=== PATIENT | male | born 1985 | race Caucasian/White ===

== ENCOUNTER 2019-04-13 17:56 | Emergency (ER) | payer OTHER ==
--- OUTSIDE RECORDS SUMMARY | 2019-04-13 18:25 | XMS REPORT | Continuity of Care Document ---
:1985 External Reference #:[id number] Author Name Patrice Bishop MD (transmitted by agent of provider Blaine Stahl) Address [address] [place] [id number] Care Team Providers Name Role Phone Debbie Andrews F.N.P. - Nurse Care Team Information Secretary Book Keeper [phone] Practitioner Problems Description No Information Available Social History Type Date Description Comments Sex Unknown ETOH Use Occasionally consumes alcohol Tobacco Use Start: Unknown End: Patient is a former smoker Recreational Drug Use Denies Drug Use Exercise Type/Frequency Does not exercise Allergies, Adverse Reactions, Alerts Active Allergies Reaction Severity Comments Date Bee Sting Severe 04/02/2019 Mushrooms 04/02/2019 Codeine Phosphate 04/02/2019 Narcotics 04/02/2019 Medications Active Medications SIG Qnty Indications Ordering Provider Date Esomeprazole Magnesium 1 cap by mouth Unknown 20mg every day Capsules DR Amoxicillin/Clavulanate 1 tab by mouth Unknown Potassium twice daily 875-125mg Tablets Ibuprofen one tablet by Unknown 600mg Tablets mouth q 6 as needed pain Tylenol 500 MG 2 tabs by mouth Unknown twice daily Immunizations Description No Information Available Vital Signs Date Vital Result Comment 04/02/2019 2:08pm Height 68 inches 5'8" Weight 178.00 lb Heart Rate 70 /min BP Systolic Sitting 120 mmHg BP Diastolic Sitting 98 mmHg Respiratory Rate 16 /min Body Temperature 99.1 F Pain Level 7 O2 % BldC Oximetry 97 % BMI (Body Mass Index) 27.1 kg/m2 Results Description No Information Available Procedures Description No Information Available Medical Devices Description No Information Available Encounters Type Date Location Provider Dx Diagnosis Office Visit 04/02/2019 Orthopedic Patrice Bishop, S80.872A Other superficial 1:[facility] [place] bite, left lower [place] leg, initial encounter S93.432A Sprain of tibiofibular ligament of left ankle, init encntr Assessments Date Code Description Provider 04/02/2019 S80.872A Other superficial bite, left lower leg, Patrice Bishop MD initial encounter 04/02/2019 S93.432A Sprain of tibiofibular ligament of left ankle, Patrice Bishop MD initial encounter Plan of Treatment Future Appointment(s):04/19/2019 8:45 am - Patrice Bishop MD at [facility]33/23/2019 - Patrice Bishop, [id number] Other superficial bite, left lower leg, initial encounterFollow up:Follow up: 1-2 weekS93.432A Sprain of tibiofibular ligament of left ankle, initial encounter Functional Status Description No Information Available Mental Status Description No Information Available Referrals Description No Information Available
[2019-04-13] MEDS ORDERED: Piperacillin/Tazobac ADVAN(*) 3.375 GM in NS 0.9% 100 ML* 100 ML IVPB ONE (19:45)
[2019-04-13 20:15] LABS: ABS Eosinophils 0.1 10^3/ul (0-0.6); ABS Monocytes 0.8 10^3/ul (0-0.8); ABS Neutrophils 5.9 10^3/ul (1.5-7.7); Eosinophil % 1.4 %; Hematocrit 43 % (42-52); Hemoglobin 14.6 g/dL (14.0-18.0); Lymphocyte % 30.1 %; Mean Corpuscular HGB Conc 34 g/dL (31-36); Mean Corpuscular Hemoglobin 31 pg (27-31); Mean Corpuscular Volume 91 fL (80-94); Mean Platelet Volume 9.1 fL (7.4-10.4); Platelet Count 359 10^3/uL (150-450); Red Blood Count 4.75 10^6 /uL (4.18-5.48); Red Cell Distribution Width 14 % (10-15); White Blood Count 9.9 10^3/uL (3.5-10.8)
[2019-04-13 20:36] LABS: Albumin 4.7 g/dL (3.2-5.2); Albumin/Globulin Ratio 1.8 (1-3); BUN/Creatinine Ratio 15.6 (8-20); C Reactive Protein 1.02 mg/L (<8.01); Calcium 9.2 mg/dL (8.6-10.3); EGFR African American 116.9 (>60); EGFR Non-African American 96.6 (>60); Globulin 2.6 g/dL (2-4); Potassium 3.8 mmol/L (3.5-5.0); Total Bilirubin 0.6 mg/dL (0.2-1.0); Total Protein 7.3 g/dL (6.4-8.9)
--- NOTE | 2019-04-13 20:40 | ED ---
Skin Complaint - HPI Summary HPI Summary: 33-year-old male presents with laceration to left leg. He states he got cut by his dog 2 weeks ago. He has been following up with [facility] and place him on Augmentin and doxycycline. He has been following up with ortho. He states he called and they told to come to the ER for possible drainage and IV antibiotics. He states been having chills and shaking. He admits to some numbness and tingling in his left foot that has been present since injury. He states he is not able to move his left foot since injury. He states the redness has been improving. no medical conditions. - History of Current Complaint Chief Complaint: EDAnimalBite Time Seen by Provider: 04/13/19 19:34 Stated Complaint: DOG BITE, WOUNDS INFECTED PER PT Pain Intensity: 6 - Allergy/Home Medications Allergies/Adverse Reactions: Allergies Allergy/AdvReac Type Severity Reaction Status Date / Time MS Codeine [Codeine] Allergy Intermediate See Comment Verified 01/02/15 20:41 bee sting Allergy Swelling Uncoded 01/02/15 20:41 mushrooms Allergy Headache Uncoded 01/02/15 20:41 narcotics Allergy Altered Uncoded 04/13/19 18:16 Mental Status PMH/Surg Hx/FS Hx/Imm Hx Endocrine/Hematology History: Denies: Hx Diabetes Respiratory History: Denies: Hx Asthma GI History: Reports: Hx Ulcer - Surgical History Surgery Procedure, Year, and Place: R knee surgeries with pins as child Infectious Disease History: No Infectious Disease History: Reports: 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 2010 [facility] Denies: Traveled Outside the [place] in Last 30 Days - Family History Known Family History: Positive: Non-Contributory - Social History Alcohol Use: None Substance Use Type: Reports: None Smoking Status (MU): Former Smoker Type: Smokeless Tobacco Review of Systems Positive: Fever, Chills Negative: Chest Pain Negative: Shortness Of Breath Positive: Rash All Other Systems Reviewed And Are Negative: Yes Physical Exam Triage Information Reviewed: Yes Vital Signs On Initial Exam: Initial Vitals Temp Pulse Resp BP Pulse Ox 98.4 F 66 20 135/89 100 04/13/19 18:11 04/13/19 18:11 04/13/19 18:11 04/13/19 18:11 04/13/19 18:11 Vital Signs Reviewed: Yes Appearance: Positive: Well-Appearing Skin: Positive: Warm, Dry, Other - lacerations to left leg with minimial erythema around such, no streaking Head/Face: Positive: Normal Head/Face Inspection Eyes: Positive: Normal, Conjunctiva Clear ENT: Positive: Pharynx normal Respiratory/Lung Sounds: Positive: Clear to Auscultation, Breath Sounds Present Cardiovascular: Positive: Normal, RRR Musculoskeletal: Positive: Limited @ - left ankle, Other - good pulses, dec sensation to foot, edema noted to foot, no crepitus Neurological: Positive: Normal Psychiatric: Positive: Normal Diagnostics - Vital Signs Vital Signs Temp Pulse Resp BP Pulse Ox 04/13/19 18:11 98.4 F 66 20 135/89 100 - Laboratory Lab Results: Lab Results 04/13/19 04/13/19 04/13/19 Range/Units 20:01 20:01 20:01 WBC 9.9 (3.5-10.8) 10^3/uL RBC 4.75 (4.18-5.48) 10^6 /uL Hgb 14.6 (14.0-18.0) g/dL Hct 43 (42-52) % MCV 91 (80-94) fL MCH 31 (27-31) pg MCHC 34 (31-36) g/dL RDW 14 (10-15) % Plt Count 359 (150-450) 10^3/uL MPV 9.1 (7.4-10.4) fL Neut % (Auto) 59.5 % Lymph % (Auto) 30.1 % [place] % (Auto) 8.5 % Eos % (Auto) 1.4 % Baso % (Auto) 0.5 % Absolute Neuts (auto) 5.9 (1.5-7.7) 10^3/ul Absolute Lymphs (auto) 3.0 (1.0-4.8) 10^3/ul Absolute Monos (auto) 0.8 (0-0.8) 10^3/ul Absolute Eos (auto) 0.1 (0-0.6) 10^3/ul Absolute Basos (auto) 0.0 (0-0.2) 10^3/ul Absolute Nucleated RBC 0.0 10^3/ul Nucleated RBC % 0.0 Sodium 140 (135-145) mmol/L Potassium 3.8 (3.5-5.0) mmol/L Chloride 105 (101-111) mmol/L Carbon Dioxide 31 (22-32) mmol/L Anion Gap 4 (2-11) mmol/L BUN 14 (6-24) mg/dL Creatinine 0.90 (0.67-1.17) mg/dL Est GFR ( Amer) 116.9 (>60) Est GFR (Non-Af Amer) 96.6 (>60) BUN/Creatinine Ratio 15.6 (8-20) Glucose 86 (70-100) mg/dL Lactic Acid 1.3 (0.5-2.0) mmol/L Calcium 9.2 (8.6-10.3) mg/dL Total Bilirubin 0.60 (0.2-1.0) mg/dL AST 32 (13-39) U/L ALT 23 (7-52) U/L Alkaline Phosphatase 51 (34-104) U/L C-Reactive Protein 1.02 (<8.01) mg/L Total Protein 7.3 (6.4-8.9) g/dL Albumin 4.7 (3.2-5.2) g/dL Globulin 2.6 (2-4) g/dL Albumin/Globulin Ratio 1.8 (1-3) Result Diagrams: 04/13/19 20:01 04/13/19 20:01 Lab Statement: Any lab studies that have been ordered have been reviewed, and results considered in the medical decision making process. - Ultrasound No standard instances Ultrasound Interpretation Completed By: Radiologist Summary of Ultrasound Findings: IMPRESSION: Left lower leg and foot findings of myositis with no associated abscess. Course/Dx - Course Course Of Treatment: 33-year-old male presents with laceration to left leg. He states he got cut by his dog 2 weeks ago. He has been following up with [facility] and place him on Augmentin and doxycycline. He has been following up with ortho. He states he called and they told to come to the ER for possible drainage and IV antibiotics. He states been having chills and shaking. He admits to some numbness and tingling in his left foot that has been present since injury. He states he is not able to move his left foot since injury. He states the redness has been improving. no medical conditions. On exam has multiple lacerations that are healing to left leg with some erythema around them. No streaking noted. no abscess felt. wbc normal. crp normal. u/s no abscess. gave dose of zoysn will waiting for lab results. discussed with dr patton who say patient and agrees that infection appears to be clearing and no abscess present. will place on 3 more days of doxycyline and continue keep lacerations clean. will have follow up with ortho. patient understand and agrees with plan. - Differential Diagnoses - Skin Complaint Differential Diagnoses: Abscess, Cellulitis, Systemic Illness - Diagnoses Provider Diagnoses: Healing laceration Discharge ED - Sign-Out/Discharge Documenting (check all that apply): Patient Departure Patient Received Moderate/Deep Sedation with Procedure: No - Discharge Plan Condition: Good Disposition: HOME Prescriptions: DOXYcycline CAP(*) [DOXYcycline 100MG CAP(*)] 100 mg PO BID #6 cap Patient Education Materials: Acute Wound Care (ED) Referrals: REGULO Devlin [Primary Care Provider] - Additional Instructions: take doxycycline twice a day for 3 more days elevate, ice take tyenlol or ibuprofen for pain every 6 hours clean area with soap and water apply neosporin follow up with ortho Return to ED if develop any new or worsening symptoms - Billing Disposition and Condition Condition: GOOD Disposition: Home - Attestation Statements Provider Attestation: I was available for consultation for this patient. I did not evaluate the patient or participate in any medical decision making or disposition decisions unless I am specifically named in the chart as having consulted on the patient. If I have consulted on the patient, please see my own ED note on the patient encounter. Liliana Diana MD
[2019-04-13] MEDS ORDERED: NS 0.9% 1000 ML** 1,000 ML IV ONE (20:59)
[2019-04-13 23:10] VITALS: BP 131/74
== END 2019-04-13 23:00 | disposition home or self-care (01) ==
LOC: ED 17:56
DX: S81.812A Laceration without foreign body, left lower leg, initial encounter (principal); W54.0XXA Bitten by dog, initial encounter; Y92.9 Unspecified place or not applicable; Z87.891 Personal history of nicotine dependence; R21 Rash and other nonspecific skin eruption; Z79.899 Other long term (current) drug therapy
CPT/HCPCS: 36415; 80053; 83605; 85025; 86140; 87040; 96361; 96365; 99282; J2543

== ENCOUNTER 2019-10-08 16:02 | Emergency (ER) | payer OTHER ==
[2019-10-08 16:38] VITALS: BP 139/74
[2019-10-08] MEDS ORDERED: Fluorescein Sodium TOPICAL* 1 MG TEST STRIP OPHTHALMIC ONE (17:09)
[2019-10-08] MEDS ORDERED: Tetracaine 0.5% OPTH.SOL 4 ML* 1 DROP BTL LEFT EYE ONE (17:14)
[2019-10-08] MEDS ORDERED: Tetracaine 0.5% OPTH.SOL 4 ML* 1 DROP BTL LEFT EYE SCH (17:30)
[2019-10-08] MEDS ORDERED: Ibuprofen TAB* 600 MG PO ONE (17:38)
--- NOTE | 2019-10-08 17:38 | UC ---
Eye Complaint HPI - HPI Summary HPI Summary: 34 yo male with left eye FB sensation x 1 day + photophobia eye red and tearing - History of Current Complaint Chief Complaint: UCEye Stated Complaint: LT EYE COMPLAINT Time Seen by Provider: 10/08/19 17:04 Hx Obtained From: Patient Onset/Duration: Gradual Onset, Lasting Hours Timing: Constant Severity Initially: Mild Severity Currently: Mild Pain Intensity: 3 Pain Scale Used: 0-10 Numeric Location of Injury: Conjunctiva, Eye Lid (upper) Character: Foreign Body Sensation Aggravating Factor(s): Light Alleviating Factor(s): Darkness Associated Signs And Symptoms: Positive: Drainage (Clear) Related History: Foreign Body - ?? Eyes: 1 - + flourescein staining defect - Risk Factors Penetrating Injury Risk Factor: Negative Globe Rupture Risk Factors: Negative Acute Glaucoma Risk Factors: Negative Optic Artery Occlusion Risk Factors: Negative - Allergies/Home Medications Allergies/Adverse Reactions: Allergies Allergy/AdvReac Type Severity Reaction Status Date / Time codeine Allergy PANIC Verified 10/08/19 16:33 ATTACKS bee sting Allergy Swelling Uncoded 10/08/19 16:33 mushrooms Allergy Headache Uncoded 10/08/19 16:33 Home Medications: Home Medications Esomeprazole Magnesium [Nexium] 40 mg PO DAILY 10/08/19 [History Confirmed 10/08] Gabapentin CAP(*) [Neurontin 100 mg CAP(*)] 100 mg PO BID 10/08/19 [History Confirmed 10/08/19] Ibuprofen TAB* [Motrin TAB*] 600 mg PO QID PRN #40 tab 10/08/19 [Rx] Polymyx/Trimethoprim OPTH* [Polytrim OPHTH*] 1 - 2 drop LEFT EYE QID #1 btl [Rx] PMH/Surg Hx/FS Hx/Imm Hx Previously Healthy: Yes - Surgical History Surgical History: Yes Surgery Procedure, Year, and Place: R knee surgeries with pins/NONMETAL as child - - Family History Known Family History: Positive: Hypertension - Social History Alcohol Use: None Substance Use Type: None Smoking Status (MU): Former Smoker Type: Smokeless Tobacco When Did the Patient Quit Smoking/Using Tobacco: 05/24 - Immunization History Most Recent Tetanus Shot: ? 2011 possibly , at [facility] Review of Systems All Other Systems Reviewed And Are Negative: Yes Constitutional: Positive: Negative Skin: Positive: Negative Eyes: Positive: Eye Redness, Photophobia, Other - tearing ENT: Positive: Negative Respiratory: Positive: Negative Cardiovascular: Positive: Negative Gastrointestinal: Positive: Negative Genitourinary: Positive: Negative Motor: Positive: Negative Neurovascular: Positive: Negative Musculoskeletal: Positive: Negative Neurological/Mental Status: Positive: Negative Psychological: Positive: Negative Physical Exam Triage Information Reviewed: Yes Appearance: Well-Appearing, No Pain Distress, Well-Nourished Vital Signs: Initial Vital Signs Temp 99.2 F 10/08/19 16:31 Pulse 72 10/08/19 16:31 Resp 16 10/08/19 16:31 BP 139/74 10/08/19 16:31 Pulse Ox 100 10/08/19 16:31 Vital Signs Reviewed: Yes Eyes: Positive: Conjunctiva Inflamed - L, Other: - see image ENT: Positive: Hearing grossly normal, Uvula midline. Negative: Nasal congestion, Nasal drainage, Trismus, Muffled voice, Hoarse voice Dental Exam: Normal Neck: Positive: Supple, Nontender, No Lymphadenopathy Respiratory: Positive: Lungs clear, Normal breath sounds, No respiratory distress, No accessory muscle use Cardiovascular: Positive: RRR, No Murmur Musculoskeletal: Positive: ROM Intact, No Edema Neurological: Positive: Alert Psychological Exam: Normal Skin Exam: Normal Eye Complaint Course/Dx - Differential Dx/Diagnosis Provider Diagnosis: Left corneal abrasion Discharge ED - Sign-Out/Discharge Documenting (check all that apply): Patient Departure All imaging exams completed and their final reports reviewed: No Studies - Discharge Plan Condition: Stable Disposition: HOME Prescriptions: Ibuprofen TAB* [Motrin TAB*] 600 mg PO QID PRN #40 tab PRN Reason: Pain Polymyx/Trimethoprim OPTH* [Polytrim OPHTH*] 1 - 2 drop LEFT EYE QID #1 btl Patient Education Materials: Corneal Abrasion (ED) Referrals: Anna Fischer MD [Medical Doctor] - 1 Day Additional Instructions: you have a corneal abrasion you may have a small foreign body imbedded under you eye lid call the eye doctor in the AM and see if they can see you. if things worsen I suggest you go to the ER at [facility] Disposition and Condition Condition: STABLE Disposition: Home
== END 2019-10-08 17:50 | disposition home or self-care (01) ==
LOC: UCCORT 16:02
DX: S05.02XA Injury of conjunctiva and corneal abrasion without foreign body, left eye, initial encounter (principal); X58.XXXA Exposure to other specified factors, initial encounter; Y92.9 Unspecified place or not applicable; Z88.5 Allergy status to narcotic agent; Z91.030 Bee allergy status; Z91.018 Allergy to other foods; Z87.891 Personal history of nicotine dependence
CPT/HCPCS: 99212; A9270-GY; G0463